=== PATIENT | female | born 1985 | race Caucasian/White ===

== ENCOUNTER → 2021-05-16 15:50 | Outpatient (CLI) | payer MEDICAID, SELFPAY ==
[2021-05-16 16:15] LABS: Amphetamine/Metha Screen,Urine Negative ng/ml (<1000)
[2021-05-16 16:17] LABS: Benzodiazepines Screen,Urine Negative ng/ml (<200); Cannabinoid Screen,Urine Negative ng/ml (<50)
[2021-05-16 16:18] LABS: Cocaine Screen,Urine Negative ng/ml (<300)
[2021-05-16 16:19] LABS: Methadone Screen,Urine Negative ng/ml (<300); Opiate Screen,Urine Negative ng/ml (<300)
[2021-05-16 16:20] LABS: Phencyclidine Screen,Urine Negative ng/ml (<25)
[2021-05-16 21:21] LABS: Barbiturates Screen,Urine Negative ng/ml (<200)
== END ==
PROVIDERS: Visit Provider Nurse Practitioner Family
DX: Z76.89 Persons encountering health services in other specified circumstances (principal)
CPT/HCPCS: 80305

== ENCOUNTER → 2022-04-10 16:44 | Outpatient (CLI) | payer MEDICAID, SELFPAY ==
--- NOTE | 2022-04-10 16:56 | XR_ITS ---
PROCEDURE INFORMATION: Exam: XR Right Foot Complete; Alignment Exam date and time: 04/10/2022 5:00 PM Age: 37 years old Clinical indication: Pain; Foot; Bilateral; Additional info: Bilat foot pain TECHNIQUE: Imaging protocol: Radiologic exam of the Right foot. Views: 3 or more views. COMPARISON: No relevant prior studies available. FINDINGS: Bones/joints: No acute fracture or malalignment. Mild 1st MTP joint degenerative changes. Soft tissues: Soft tissue swelling about the forefoot. IMPRESSION: No acute fracture or malalignment.
--- NOTE | 2022-04-10 16:56 | XR_ITS ---
PROCEDURE INFORMATION: Exam: XR Left Foot Complete; Alignment Exam date and time: 04/10/2022 5:00 PM Age: 37 years old Clinical indication: Pain; Foot; Bilateral; Additional info: Bilat foot pain TECHNIQUE: Imaging protocol: Radiologic exam of the Left foot. Views: 3 or more views. COMPARISON: No relevant prior studies available. FINDINGS: Bones/joints: No acute fracture or malalignment. Mild 1st MTP joint degenerative changes. Soft tissues: Normal. IMPRESSION: No acute fracture or malalignment.
[2022-04-10 17:14] LABS: Basophils # 0.1 K/mm3 (0-0.2); Basophils % 0.9 % (0.1-2.0); Eosinophils # 0.2 K/mm3 (0.0-0.4); Eosinophils % 2.6 % (0.1-12.0); Hematocrit 46.5 % (37.0-47.0); Hemoglobin 15.5 g/dL (12.2-16.2); Lymphocytes # 2.8 K/mm3 (0.7-4.5); Mean Corpuscular HGB Conc 33.3 g/dL (31.8-35.4); Mean Corpuscular Hemoglobin 33.4 pg (27.0-31.2); Mean Corpuscular Volume 100.5 fl (81-99); Mean Platelet Volume 8.1 fl (7.4-10.4); Monocytes # 0.4 K/mm3 (0.1-1.0); Monocytes % 5.7 % (1.7-9.3); Neutrophils # 3.9 K/mm3 (1.8-7.8); Neutrophils % 52.8 % (37.0-80.0); Platelet Count 308 K/mm3 (142-424); Red Blood Count 4.63 M/mm3 (4.20-5.40); Red Cell Distribution Width 13.4 % (11.5-17.5); White Blood Count 7.4 K/mm3 (4.8-10.8)
[2022-04-10 19:28] LABS: 25-OH Vitamin D, Total 24.9 ng/mL (30-100)
[2022-04-10 19:41] LABS: Thyroid Stimulating Hormone 5.68 uIU/mL (0.465-4.68)
[2022-04-11 00:16] LABS: Alanine Aminotransferase 17 U/L (12-78); Albumin Level 4.5 g/dl (3.5-5.0); Albumin/Globulin Ratio 1.9 (1.1-1.8); Alkaline Phosphatase 63 U/L (38-126); Anion Gap 13.1 mEq/L (5-15); Aspartate Amino Transferase 26 U/L (14-36); Bilirubin,Total 0.4 mg/dl (0.2-1.3); Blood Urea Nitrogen 7 mg/dl (7-17); Calcium 8.8 mg/dl (8.4-10.2); Carbon Dioxide 23 mmol/L (22.0-30.0); Chloride 106 mmol/L (98-107); Cholesterol 204 mg/dl (140-200); Estimated Glomerular Filt Rate 112 ml/min (>60); GFR (African American) 136 ML/MIN (>60); Globulin 2.4 g/dL (1.3-3.2); Glucose 104 mg/dl (74-100); HDL Cholesterol 51 mg/dl (40-60); Potassium 4.1 mmoL/L (3.5-5.1); Sodium 138 mmol/L (136-145); Total Protein,Serum 6.9 g/dl (6.3-8.2); Triglycerides 131 mg/dl (30-150); VLDL Cholesterol 26 mg/dL (0-40)
[2022-04-11 00:28] LABS: Direct LDL Cholesterol 129.01 mg/dL (100-129)
== END ==
PROVIDERS: PCP Nurse Practitioner Family; Visit Provider Nurse Practitioner Family
DX: R53.83 Other fatigue (principal); E55.9 Vitamin D deficiency, unspecified; M79.671 Pain in right foot; M79.672 Pain in left foot
CPT/HCPCS: 36415; 73630; 80053; 80061; 82306; 84443; 85025

== ENCOUNTER → 2022-08-01 20:47 | Outpatient (CLI) | payer MEDICAID, SELFPAY ==
[2022-08-01 21:43] LABS: Amphetamine/Metha Screen,Urine Negative ng/ml (<1000)
[2022-08-01 21:44] LABS: Barbiturates Screen,Urine Negative ng/ml (<200)
[2022-08-01 21:45] LABS: Benzodiazepines Screen,Urine Negative ng/ml (<200); Cannabinoid Screen,Urine Negative ng/ml (<50)
[2022-08-01 21:46] LABS: Cocaine Screen,Urine Negative ng/ml (<300)
[2022-08-01 21:47] LABS: Methadone Screen,Urine Negative ng/ml (<300); Opiate Screen,Urine Negative ng/ml (<300)
[2022-08-01 21:48] LABS: Phencyclidine Screen,Urine Negative ng/ml (<25)
== END ==
PROVIDERS: PCP Nurse Practitioner Family; Visit Provider Nurse Practitioner Family
DX: Z79.899 Other long term (current) drug therapy (principal)
CPT/HCPCS: 80305

== ENCOUNTER → 2022-10-31 11:10 | Outpatient (CLI) | payer MEDICAID, SELFPAY ==
[2022-11-01 09:48] LABS: Amphetamine/Metha Screen,Urine Negative ng/ml (<1000); Benzodiazepines Screen,Urine Negative ng/ml (<200)
[2022-11-01 09:49] LABS: Barbiturates Screen,Urine Negative ng/ml (<200)
[2022-11-01 09:50] LABS: Cannabinoid Screen,Urine Negative ng/ml (<50); Methadone Screen,Urine Negative ng/ml (<300)
[2022-11-01 09:51] LABS: Cocaine Screen,Urine Negative ng/ml (<300)
[2022-11-01 09:52] LABS: Opiate Screen,Urine Negative ng/ml (<300)
[2022-11-01 09:53] LABS: Phencyclidine Screen,Urine Negative ng/ml (<25)
== END ==
PROVIDERS: PCP Nurse Practitioner Family; Visit Provider Nurse Practitioner Family
DX: Z79.899 Other long term (current) drug therapy (principal)
CPT/HCPCS: 80305

== ENCOUNTER 2024-04-14 15:52 | Outpatient (CLI) | payer BC, SELFPAY ==
[2024-04-14 19:07] LABS: Basophils % 0.4 % (0.1-2.0); Eosinophils # 0.2 K/mm3 (0.0-0.4); Eosinophils % 1.9 % (0.1-12.0); Hematocrit 46.1 % (37.0-47.0); Hemoglobin 15.6 g/dL (12.2-16.2); Lymphocytes % 24.7 % (10-50); Mean Corpuscular HGB Conc 33.8 g/dL (31.8-35.4); Mean Corpuscular Hemoglobin 32.4 pg (27.0-31.2); Mean Corpuscular Volume 95.8 fl (81-99); Mean Platelet Volume 11.1 fl (7.4-10.4); Monocytes # 0.5 K/mm3 (0.1-1.0); Monocytes % 6.8 % (1.7-9.3); Neutrophils # 5.3 K/mm3 (1.8-7.8); Neutrophils % 66.1 % (37.0-80.0); Platelet Count 267 K/mm3 (142-424); Red Blood Count 4.81 M/mm3 (4.20-5.40); Red Cell Distribution Width 13.2 % (11.5-17.5); White Blood Count 7.9 K/mm3 (4.8-10.8)
[2024-04-14 19:46] LABS: 25-OH Vitamin D, Total 36.9 ng/mL (30-100)
[2024-04-14 19:52] LABS: Alanine Aminotransferase 21 U/L (12-78); Albumin Level 4.9 g/dl (3.5-5.0); Albumin/Globulin Ratio 2.1 (1.1-1.8); Alkaline Phosphatase 76 U/L (38-126); Aspartate Amino Transferase 27 U/L (14-36); Bilirubin,Total 0.7 mg/dl (0.2-1.3); Blood Urea Nitrogen 9 mg/dl (7-17); Calcium 9.5 mg/dl (8.4-10.2); Carbon Dioxide 27 mmol/L (22.0-30.0); Chloride 103 mmol/L (98-107); Chol/HDL Ratio 6.3 (1-3.5); Cholesterol 219 mg/dl (140-200); Estimated Glomerular Filt Rate 111 ml/min (>60); GFR (African American) 135 ML/MIN (>60); Globulin 2.3 g/dL (1.3-3.2); Glucose 93 mg/dl (74-100); HDL Cholesterol 35 mg/dl (40-60); Sodium 139 mmol/L (136-145); Total Protein,Serum 7.2 g/dl (6.3-8.2); Triglycerides 176 mg/dl (30-150); VLDL Cholesterol 35 mg/dL (0-40)
[2024-04-14 20:06] LABS: Direct LDL Cholesterol 132.01 mg/dL (100-129)
[2024-04-14 20:25] LABS: Thyroid Stimulating Hormone 4.11 uIU/mL (0.465-4.68)
[2024-04-14 21:09] LABS: HIV Combo NEGATIVE (Negative)
[2024-04-14 21:18] LABS: Hepatitis C Ab Qual. W/ RFX NEGATIVE (Negative)
== END 2024-04-14 23:59 | disposition home or self-care (01) ==
LOC: LAB.DROPOF 04-15 12:25
PROVIDERS: PCP Nurse Practitioner Family; Visit Provider Nurse Practitioner Family
DX: Z11.59 Encounter for screening for other viral diseases (principal); F41.9 Anxiety disorder, unspecified
CPT/HCPCS: 80053; 80061; 82306; 84443; 85025; 86803; 87389

== ENCOUNTER 2024-11-09 16:00 | Outpatient (CLI) | payer BC, SELFPAY ==
--- OUTSIDE RECORDS SUMMARY | 2024-09-23 14:30 | XMS_ITS ---
Author Organization [facility] Address [address] [place] [address] Care Team Providers Care Glue Machine Operator Name Role Phone Linda Bennett Unavailable [phone] Allergies Allergen (clinical drug ingredient) Drug/Non Drug Allergy documented on EMR Reaction Allergy Type Onset Date Status Penicillin rash Drug Allergy Active REASON FOR VISIT vomiting and diarrhea started today Medications Medication SIG (Take, Route, Frequency, Duration) Notes Start Date End Date Status Vitamin D3 50 MCG (1999 UT) TAKE 1 CAPSU LE DAILY Oral; Duration: 30 Days Active Naproxen 500 MG Oral; Duration: 15 Days Active Gabapentin 300 MG Oral; Duration: 30 Days Active Ondansetron 4 MG 1 tablet on the tong ue and allow to dissolve Orally 3 times a day; Duration: 2 days 09/23/2024 Active D3-50 1.25 MG (61615 UT) TAKE 1 CAPUSLE ONCE WEEKLY Oral; Duration: 28 Days Active Social History Tobacco Use: Social History Observation Description Date Details (start date - stop date) Current Smoker NA - NA Tobacco Control (Standard) Question Answer Notes Tobacco use: Current smoker How often do you smoke cigarettes? Every day How many cigarettes a day do you smoke? 6-10 Vital Signs Temperature 98.1 degrees Fahrenheit 09/24/19 25 Respiratory Rate 16 /min 09/23/2024 Blood pressure systolic 120 mm Hg 09/24/19 25 Blood pressure diastolic 74 mm Hg 025 not sexually active Encounters Encounter Location Date Provider Diagnosis [facility] [address] [place] [id number] 09/23/2024 Linda Bennett Gastroenteritis K52. 9 Assessments Encounter Date Diagnosis (ICD Code) Assessment Notes Treatment Notes Treatment Clinical Notes Section Notes 09/23/2024 Gastroenteritis (ICD-10 - K52.9) if any further vomiting go to ER if any pain or fever go to ER if no improvement in diarrhea in 24 hours, FU for further testing Visit summary given to and discussed with patient and/or parent who verbalizes understanding and agreement with plan of care. Plan Of Treatment Medication Medication Name Sig Start Date Stop Date Notes Ondansetron 4 MG 1 tablet on the tong ue and allow to dissolve Orally 3 times a day; Duration: 2 days 09/23/2024 Treatment Notes Assessment Notes Gastroenteritis if any further vomiting go to ER if any pain or fever go to ER if no improvement in diarrhea in 24 hours, FU for further testing Visit summary given to and discussed with patient and/or parent who verbalizes understanding and agreement with plan of care. Next Appt Details Follow Up: as discussed, Dee son: Progress Notes * Chyna ROSAB:1985 (39 yo F)Acc No.[id number]:09/23/2024 Progress Notes Patient: Harvinder RAYGOZA Provider: Waldemar Bennett APRN :1985 A ge:39 Y S ex:Female Date:09/23/2024 External Visit ID:[id number] [address]:[address] [place], [place] [id number] Subjective: * Chief Complaints: * 1 . Vomiting and diarrhea started today. * HPI: G astrointestinal: 39 year old female presents with c/o diarrhea 4 to 5 times today w atery c ramping a lso vomiting alot more today s till nauseated l ast vomited 2 hours ago, Onset: gradual.? c/o nausea. c/o vomiting. Denies : pain. D enies : rectal bleeding. * ROS: C ONSTITUTIONAL: no c hills. n o f ever. n o g eneral malaise. R ESPIRATORY: no c ough. G ASTROENTEROLOGY: no p ain. n o d istention. n ausea y es.?vomiting y es. d iarrhea y es. n o c onstipation. n o b lack tarry stool. n o b loody stool. c ramping y es. # bowel movements (last 24 hrs) > 10. n o h epatomegaly. n o s plenomegaly. * Medical History: N europathy. * Surgical History: D enies Past Surgical History. * Hospitalization/Major Diagno stic Procedure: D enies Past Hospitalization. * Family History: F ather: alive. M other: alive. N on-Contributory. * Social History: T obacco Use: T obacco Control (Standard) T obacco use: C urrent smoker, H ow often do you smoke cigarettes? E very day, H ow many cigarettes a day do you smoke? 6 -10. * Medications: T aking Gabapentin 300 MG Capsule Oral , Taking D3-50 1.25 MG (78668 UT) Capsule TAKE 1 CAPUSLE ONCE WEEKLY Oral , Taking Vitamin D3 50 MCG (2000 UT) Capsule TAKE 1 CAPSULE DAILY Oral , Taking Naproxen 500 MG Tablet Oral , Medication List reviewed and reconciled with the patient * Allergies: P enicillin: rash. Objective: * Vitals: T emp:98.1, Pulse:76, RR:16, BP:120/74, Pain (at time of visit):0/10, LNMP: irregular. not sexually active. * Examination: F ocused Exam: GENERAL: a lert and oriented x 4, no acute distress, dress appropriate for the environment & temp, well-groomed, appears well. MOUTH AND THROAT: l ips pink, moist, oral mucosa pink, moist, w/o lesions or discolorations, uvula midline, pharynx pink, moist, w/o infection, no tonsillar enlargement, no exudate. CARDIO: S 1 & S2 single sounds, no murmurs, gallops, rubs, or clicks, RRR. ABDOMEN: n ormoactive bowel sounds, non-distended, no tenderness to light or deep palpation, soft. DERMATOLOGICAL: n o rashes, general appearance normal. PSYCH: f riendly attitude. Assessment: * Assessment: 1. G astroenteritis - K52.9 (Primary) Plan: * Treatment: * Procedure Codes: C ODER Sending to Property Management Specialist for Code Review * Follow Up: a s discussed * Billing Information: * Visit Code: * Procedure Codes: CAMPUS SECURITY OFFICER Sending to Property Management Specialist for Code Review. Care Plan Details* Images * id and ins 09/23/24 * Sign off status: Completed true * Provider: Waldemar Bennett APRN Date: 09/23/2024 Generated for Dheeraj herman/Josephine/Tino on: 11/10/2024 09:13 AM CDT History and Physical Notes * HPI (History of Present Illness) Category Sub-Category Detail Notes Category Not es Gastrointestinal pain nausea vomiting rectal bleeding diarrhea 4 to 5 times today w atery cramping also vomiting alot more today still nauseated last vomited 2 hours ago, Onset: gradual Examination Category Sub-Category Detail Notes Category Not es Focused Exam MOUTH AND THROAT: lips pink, [address], oral mucosa pink, moist, w/o lesions or discolorations, uvula midline, pharynx pink, moist, w/o infection, no tonsillar enlargement, no exudate ABDOMEN: normoactive bowel so unds, non-distended, no tenderness to light or deep palpation, soft GENERAL: alert and oriented x 4, no acute distress, dress appropriate for the environment & temp, well-groomed, appears well DERMATOLOGICAL: no rashes, general a ppearance normal PSYCH: friendly attitude CARDIO: S1 & S2 single sound s, no murmurs, gallops, rubs, or clicks, RRR
[2024-11-09 19:33] LABS: Coronavirus 19, PCR Not Detected (NotDetected); Influenza A, PCR Not Detected (NotDetected); Influenza B, PCR Not Detected (NotDetected)
--- OUTSIDE RECORDS SUMMARY | 2024-11-10 10:13 | XMS_ITS | Patient Health Record ---
Author Organization [facility] Address [address] [place] [address] Care Team Providers Care Ocean Lifeguard Name Role Phone Tasha Denis Unavailable [phone] Reason For Referral No Information Social History Social History Sexual History: Social Info Question Answer Notes Sexual History Had sex in the past 12 months (vaginal, oral, or anal)? Yes Drugs/Alcohol: Social Info Question Answer Notes Drugs Have you used drugs other than those for medical reasons in the past 12 months? No Alcohol Screen Did you have a drink containing alcohol in the past year? Yes Points 0 Interpretation Negative Tobacco Use: Social Info Question Answer Notes Tobacco Use/Smoking Are you a former smoker Tobacco use other than smoking: Are you an other tobac co user? No Plan Of Treatment No Information
--- OUTSIDE RECORDS SUMMARY | 2024-11-10 10:13 | XMS_ITS | Patient Health Record ---
Author Organization [facility] Address [address] [place] [address] Care Team Providers Care Wafer Mounter Name Role Phone Linda Bennett Unavailable [phone] Allergies Allergen (clinical drug ingredient) Drug/Non Drug Allergy documented on EMR Reaction Allergy Type Onset Date Status Penicillin rash Drug Allergy Active Reason For Referral No Information Medications Medication SIG (Take, Route, Frequency, Duration) [...] 2 days 09/23/2024 Active D3-50 1.25 MG (37925 UT) TAKE 1 CAPUSLE ONCE WEEKLY Oral; Duration: 28 Days Active Social History Tobacco Use: Social History Observation Description Date Details (start date - stop date) Current Smoker NA - NA Tobacco Control (Standard) Question Answer Notes Tobacco use: Current smoker How often do you smoke cigarettes? Every day How many cigarettes a day do you smoke? 6-10 Problems Problem Type SNOMED Code ICD Code Onset Dates Problem Status W/U Status Risk Notes Problem Neuropathy (097020490) Neuropathy (G62.9) Active confirmed Problem Overweight (240235833) Overweight (BMI 25.0-29.9) (E66.3) Active confirmed Problem Encounter for laboratory testing for COVID-19 virus (Z20.822) Active confirmed Vital Signs Temperature 98.1 degrees Fahrenheit 09/23/2024 not sexually active Respiratory Rate 16 /min 09/23/2024 not sexuall y active Blood pressure diastolic 74 mm Hg 09/23/2024 not sexually active Blood pressure systolic 120 mm Hg 09/23/2024 not sexually active Encounters Encounter Location Date Provider Diagnosis [id number] [facility] [address] [place] [address] 09/23/2024 Linda Bennett Gastroenteritis K52. 9 Assessments [...] with plan of care. Plan Of Treatment No Information Insurance Providers Payer Name Payer Address Payer Phone Subscriber Number Group Number Insured Name Patient Relationship to Insured Coverage Start Date Coverage End Date [facility] [address] [place] [address] [id number] Harvinder Lara Self - patient is the insured Medical (General) History Medical History History ICD Code Neuropathy G62.9
== END 2024-11-09 23:59 | disposition home or self-care (01) ==
LOC: LAB.DROPOF 11-10 10:05
PROVIDERS: PCP Family Medicine; Visit Provider Family Medicine
DX: R05.9 Cough, unspecified (principal)
CPT/HCPCS: 87636